=== PATIENT | male | born 1970 | race Caucasian/White ===

== ENCOUNTER 2021-01-22 14:44 | Emergency (ER) | payer OTHER ==
[~2021-01-22 14:44] MED LIST: CLEOCIN300 MG PO; NORCO 5-325 TA1 EACH PO; ZOFRAN4 MG PO
[2021-01-22 15:49] LABS: BASOPHIL 0.8 % (0-2); EOSINOPHIL 2.1 % (0-5); HCT 46.4 % (42.0-52.0); HGB 16.2 g/dl (13.2-18.0); LYMPHOCYTE 26.3 % (15-48); MCH 30.7 pg (25.0-31.0); MCHC 34.9 g/dL (32.0-36.0); MONOCYTE 9.3 % (0-12); MPV 9.6 fL (6.0-9.5); NEUTROPHIL 61.2 % (41-80); NRBC 0; PLT 272 K/uL (150-400); RBC 5.27 M/uL (4.70-6.00); WBC 6.2 K/uL (4.0-10.5)
[2021-01-22 15:59] LABS: BILIRUBIN NEGATIVE (NEGATIVE); BLOOD NEGATIVE Ery/uL (NEGATIVE); CLARITY CLEAR (CLEAR); COLOR YELLOW (YELLOW); GLUCOSE (U) 3+ mg/dL (NORMAL); LEUKOCYTES NEGATIVE Leu/uL (NEGATIVE); NITRITE NEGATIVE (NEGATIVE); PROTEIN NEGATIVE (NEGATIVE); SPECIFIC GRAVITY 1.015 (1.001-1.030); UROBILINOGEN 0.2 mg/dL (0.2-1.0)
[2021-01-22 16:09] LABS: BILIRUBIN - TOTAL 0.4 mg/dL (0.2-1.0); BUN/CREAT RATIO (CALC) 16.1 RATIO; CREATININE 0.87 mg/dL (0.67-1.17); GLOBULIN (CALCULATION) 3.2 g/dL; POTASSIUM 4.2 mmol/L (3.5-5.1); TOTAL PROTEIN 7.2 g/dL (6.4-8.2)
== END 2021-01-22 16:48 | disposition home or self-care (01) ==
LOC: FER 14:44
PROVIDERS: Emergency Medicine
DX: T67.5XXA Heat exhaustion, unspecified, initial encounter (principal); I10 Essential (primary) hypertension; E11.9 Type 2 diabetes mellitus without complications; F17.210 Nicotine dependence, cigarettes, uncomplicated; X30.XXXA Exposure to excessive natural heat, initial encounter
CPT/HCPCS: 36415; 80053; 81003; 85025; J2405; J7030

== ENCOUNTER 2021-04-12 09:18 | Emergency (ER) | payer OTHER ==
[2021-04-12 12:41] LABS: BASOPHIL 0.5 % (0-2); EOSINOPHIL 2.2 % (0-5); HCT 48.9 % (42.0-52.0); HGB 16.8 g/dl (13.2-18.0); LYMPHOCYTE 31.8 % (15-48); MCH 31.2 pg (25.0-31.0); MCHC 34.4 g/dL (32.0-36.0); MCV 90.7 fL (78.0-100.0); MONOCYTE 11.1 % (0-12); MPV 9.6 fL (6.0-9.5); NEUTROPHIL 54.1 % (41-80); NRBC 0; PLT 348 K/uL (150-400); RBC 5.39 M/uL (4.70-6.00); RDW 13.5 % (11.5-14.0); WBC 6.5 K/uL (4.0-10.5)
[2021-04-12 13:12] LABS: ALBUMIN 4.3 g/dL (3.4-5.0); BILIRUBIN - TOTAL 0.7 mg/dL (0.2-1.0); BUN/CREAT RATIO (CALC) 19.6 RATIO; CREATININE 0.97 mg/dL (0.67-1.17); GLOBULIN (CALCULATION) 3.6 g/dL; POTASSIUM 4.6 mmol/L (3.5-5.1); TOTAL PROTEIN 7.9 g/dL (6.4-8.2)
[2021-04-12] MEDS ORDERED: AZITHROMYCIN250 MG PO (13:39)
== END 2021-04-12 13:56 | disposition home or self-care (01) ==
LOC: FER 09:18
PROVIDERS: Emergency Medicine
DX: J20.9 Acute bronchitis, unspecified (principal); I10 Essential (primary) hypertension; E11.9 Type 2 diabetes mellitus without complications; F17.210 Nicotine dependence, cigarettes, uncomplicated; Z79.84 Long term (current) use of oral hypoglycemic drugs; Z79.899 Other long term (current) drug therapy; Z20.822 Contact with and (suspected) exposure to COVID-19
CPT/HCPCS: 36415; 71046; 80053; 85025; 94640; 94664; J7030; U0002

== ENCOUNTER 2021-12-06 13:47 | Emergency (ER) | payer OTHER ==
[~2021-12-06 13:47] MED LIST changes: +AZITHROMYCIN250 MG PO
[2021-12-06 16:39] LABS: BASOPHIL 0.7 % (0-2); BILIRUBIN NEGATIVE (NEGATIVE); BLOOD NEGATIVE Ery/uL (NEGATIVE); CLARITY CLEAR (CLEAR); COLOR YELLOW (YELLOW); EOSINOPHIL 3.4 % (0-5); GLUCOSE (U) 3+ mg/dL (NORMAL); HCT 48.2 % (42.0-52.0); HGB 16.5 g/dl (13.2-18.0); LEUKOCYTES NEGATIVE Leu/uL (NEGATIVE); LYMPHOCYTE 29.7 % (15-48); MCH 30.3 pg (25.0-31.0); MCHC 34.2 g/dL (32.0-36.0); MCV 88.6 fL (78.0-100.0); MONOCYTE 8.8 % (0-12); MPV 9.9 fL (6.0-9.5); NEUTROPHIL 56.9 % (41-80); NITRITE NEGATIVE (NEGATIVE); NRBC 0; PLT 270 K/uL (150-400); PROTEIN NEGATIVE (NEGATIVE); RBC 5.44 M/uL (4.70-6.00); RDW 12.7 % (11.5-14.0); SPECIFIC GRAVITY 1.015 (1.001-1.030); UROBILINOGEN 0.2 mg/dL (0.2-1.0); WBC 5.6 K/uL (4.0-10.5)
[2021-12-06 16:56] LABS: ALBUMIN 3.9 g/dL (3.4-5.0); BILIRUBIN - TOTAL 0.3 mg/dL (0.2-1.0); BUN/CREAT RATIO (CALC) 16.7 RATIO; CREATININE 0.78 mg/dL (0.67-1.17); GLOBULIN (CALCULATION) 3.3 g/dL; POTASSIUM 4.2 mmol/L (3.5-5.1); TOTAL PROTEIN 7.2 g/dL (6.4-8.2)
[2021-12-06] MEDS ORDERED: ONDANSETRON HCL4 MG PO (17:40)
== END 2021-12-06 17:58 | disposition home or self-care (01) ==
LOC: FER 13:47
PROVIDERS: Physician Assistant Medical
DX: R11.10 Vomiting, unspecified (principal); R42 Dizziness and giddiness; I10 Essential (primary) hypertension; E11.9 Type 2 diabetes mellitus without complications; F17.210 Nicotine dependence, cigarettes, uncomplicated; Z79.84 Long term (current) use of oral hypoglycemic drugs; Z79.899 Other long term (current) drug therapy
CPT/HCPCS: 36415; 80053; 81003; 85025; 87088; J2405; J7030